=== PATIENT | female | born 1960 | race Caucasian/White ===

== ENCOUNTER 2017-01-07 12:24 | Inpatient (IN) | payer OTHER ==
[~2017-01-07] VITALS: Ht 170.2 cm; Wt 102.0 kg
[~2017-01-07 12:24] MED LIST: CYCL-259 PO; LEVO175T5 PO; NEBI5TAB2 PO
[2017-01-07] MEDS ORDERED: VANCOMYCIN PER PHARMACY MC STA (13:16)
[2017-01-07] MEDS ORDERED: VANCOMYCIN 1,500 MG in SODIUM CHLORIDE 0.9% 250 ML IV ONE (13:30)
[2017-01-07] MEDS ORDERED: LACTATED RINGERS 1,000 ML IV SCH (13:39)
[2017-01-07 13:43] VITALS: BP 137/85
[2017-01-07] MEDS ORDERED: MIDAZOLAM 1 MG/ML, 2ML ONE (14:17)
[2017-01-07] MEDS ORDERED: FENTANYL PF 100 MCG/2ML ONE ×2 (14:17→18:43)
[2017-01-07 15:12] LABS: HIV 1&2 ANTIBODY SCREEN Nonreactive (Nonreactive); HIV-1 p24 ANTIGEN Nonreactive (Nonreactive)
[2017-01-07] MEDS ORDERED: SENNA/DOCUSATE TABLET PO PRN (16:00)
[2017-01-07] MEDS ORDERED: HYDROmorphone 1 MG/ML, 1ML IV PRN (16:00)
[2017-01-07] MEDS ORDERED: DIPHENHYDRAMINE 25 MG CAPSULE PO PRN (16:00)
[2017-01-07] MEDS ORDERED: BISACODYL 10 MG SUPP PR PRN (16:00)
[2017-01-07] MEDS ORDERED: DIAZEPAM 5 MG TABLET PO PRN (16:00)
[2017-01-07] MEDS ORDERED: ALUMINUM/MAG/SIMETHICONE 30 ML UDC PO PRN (16:00)
[2017-01-07] MEDS ORDERED: MAGNESIUM HYDROXIDE 8%, 30ML UDC PO PRN (16:00)
[2017-01-07] MEDS ORDERED: ONDANSETRON 4 MG TABLET PO PRN (16:00)
[2017-01-07] MEDS ORDERED: ONDANSETRON 2MG/ML, 2ML IV PRN (16:00)
[2017-01-07] MEDS ORDERED: DEXAMETHASONE 4 MG/ML, 1ML ONE (16:08)
[2017-01-07] MEDS ORDERED: PROPOFOL 10 MG/ML, 20ML ONE (16:08)
[2017-01-07] MEDS ORDERED: CEFAZOLIN 1,000 MG ONE (16:08)
[2017-01-07] MEDS ORDERED: ONDANSETRON 2MG/ML, 2ML ONE (16:08)
[2017-01-07] MEDS ORDERED: MEPERIDINE/PF 25MG/0.5ML IVPush PRN (16:30)
[2017-01-07] MEDS ORDERED: LABETALOL 5MG/ML, 20ML IV PRN (16:30)
[2017-01-07] MEDS ORDERED: ONDANSETRON 2MG/ML, 2ML IVPush PRN (16:30)
[2017-01-07] MEDS ORDERED: PROMETHAZINE 25 MG/ML, 1ML IV PRN (16:30)
[2017-01-07] MEDS ORDERED: OXYcodone 5 MG/5 ML ORAL.SOL UDC PO PRN (16:30)
[2017-01-07] MEDS ORDERED: MIDAZOLAM 1 MG/ML, 2ML IV PRN (16:30)
[2017-01-07] MEDS ORDERED: hydrALAzine 20 MG/ML, 1ML IV PRN (16:30)
[2017-01-07] MEDS ORDERED: TRANEXAMIC ACID 100 MG/ML, 10ML ONE ×4 (16:36)
[2017-01-07] MEDS ORDERED: KETOROLAC 60 MG/2 ML ONE (17:06)
[2017-01-07] MEDS ORDERED: ROPIvacaine/PF 0.2%, 20 ML ONE (17:07)
[2017-01-07] MEDS ORDERED: ACETAMINOPHEN 650 MG/20.3 ML UDC ONE (18:43)
[2017-01-07] MEDS ORDERED: OXYcodone 5 MG/5 ML ORAL.SOL UDC ONE (18:44)
[2017-01-07] MEDS: ACETAMINOPHEN 650 MG/20.3 ML UDC PO PRN ×2 (18:49→23:33)
[2017-01-07] MEDS: FENTANYL PF 100 MCG/2ML IV PRN ×2 (18:59→19:10)
[2017-01-07] MEDS ORDERED: HYDROmorphone 1 MG/ML, 1ML ONE (19:14)
[2017-01-07] MEDS: HYDROmorphone 1 MG/ML, 1ML IV PRN ×4 (19:15→20:05)
[2017-01-07 20:45] VITALS: BP 150/82
[2017-01-07] MEDS ORDERED: CYCLOBENZAPRINE 10 MG TABLET PO PRN (21:30)
[2017-01-07] MEDS: DOCUSATE 100 MG CAPSULE PO SCH (21:59)
[2017-01-07] MEDS: D5%-0.45NACL+KCL 20MEQ 1,000 ML IV SCH ×2 (21:59→23:48)
[2017-01-07] MEDS: OXYcodone IR 5MG TABLET PO PRN (23:33)
[2017-01-08 00:06] VITALS: BP 146/76
[2017-01-08 02:28] VITALS: BP 133/70
[2017-01-08] MEDS ORDERED: VANCOMYCIN PMX 1GM/200ML 200 ML IVPB ONE (02:30)
[2017-01-08] MEDS: ACETAMINOPHEN 650 MG/20.3 ML UDC PO PRN (04:34)
[2017-01-08] MEDS: OXYcodone IR 5MG TABLET PO PRN ×2 (04:34→09:02)
[2017-01-08 06:00] VITALS: BP 163/81
[2017-01-08] MEDS ORDERED: ASPIRIN 81 MG TABLET EC PO SCH (06:00)
[2017-01-08] MEDS ORDERED: LEVOTHYROXINE 175 MCG TABLET PO SCH (06:00)
[2017-01-08] MEDS ORDERED: NEBIVOLOL HCL 5 MG TABLET PO SCH (06:00)
[2017-01-08] MEDS ORDERED: DEXAMETHASONE 4 MG/ML, 1ML IVPush SCH (06:00)
[2017-01-08 08:00] VITALS: BP 118/77
[2017-01-08] MEDS ORDERED: TAMSULOSIN 0.4 MG CAP.ER.24H PO SCH (09:00)
[2017-01-08] MEDS: D5%-0.45NACL+KCL 20MEQ 1,000 ML IV SCH (09:02)
[2017-01-08] MEDS: DOCUSATE 100 MG CAPSULE PO SCH (09:02)
[2017-01-08] MEDS ORDERED: ASPI-621 PO (10:02)
[2017-01-08] MEDS ORDERED: OXYC5CAP4 PO (10:03)
[2017-01-08] MEDS ORDERED: DIAZ5TAB PO (10:04)
[2017-01-08] MEDS ORDERED: TRAM50TA2 PO (10:06)
[2017-01-08] MEDS ORDERED: DOCU-30 PO (10:07)
[2017-01-08] MEDS ORDERED: ONDA4TAB10 PO (10:07)
[2017-01-08 11:13] VITALS: BP 135/79
[2017-01-08] MEDS ORDERED: CELE200C PO (12:09)
[2017-01-08] MEDS ORDERED: KETOROLAC 30 MG/1 ML IV SCH (16:00)
== END 2017-01-08 12:25 | disposition home or self-care (01) | DRG 470 ==
LOC: ORIP 12:46 → 4NOR 20:45 → DCLOUNGE 01-08 11:53
PROVIDERS: ADMIT Orthopaedic Surgery; ATTEND Orthopaedic Surgery
PROC: 3E0T3BZ Introduction of Anesthetic Agent into Peripheral Nerves and Plexi, Percutaneous Approach (ICD-10-PCS; 2017-01-07)
PROC: 0SRD0J9 Replacement of Left Knee Joint with Synthetic Substitute, Cemented, Open Approach (ICD-10-PCS; principal; 2017-01-07 14:45)
DX: M17.0 Bilateral primary osteoarthritis of knee (principal); K21.9 Gastro-esophageal reflux disease without esophagitis; E03.9 Hypothyroidism, unspecified; I10 Essential (primary) hypertension; E66.01 Morbid (severe) obesity due to excess calories; R33.9 Retention of urine, unspecified; Z88.2 Allergy status to sulfonamides; Z68.35 Body mass index [BMI] 35.0-35.9, adult
CPT/HCPCS: 36415; 83036; 85014; 85018; 85730; 86703; 87081; 87147; 87899; C1713; J0690; J1100; J1170; J1885; J2250; J2405; J2704; J2795; J3010; J3370; C1776; G0435; J3480; J7050; J7120; Q0163

== ENCOUNTER → 2017-04-11 | Outpatient (CLI) | payer OTHER ==
[~2017-04-11] MED LIST changes: +ASPI-496 PO; +ASPI-621 PO; +CELE200C PO; +CYCL5TAB PO; +DIAZ5TAB PO; +DOCU-131 PO; +ONDA4TAB10 PO; +OXYC5CAP2 PO; +OXYC5TAB3 PO; +TRAM50TA2 PO
[2017-04-11 12:29] LABS: HEMATOCRIT 42.5 % (34.6-47.8); WHITE BLOOD COUNT 8.2 x10^3/uL (3.4-10)
[2017-04-11 12:36] LABS: BLOOD UREA NITROGEN 14 mg/dL (7-18)
[2017-04-11 12:53] LABS: HIV 1&2 ANTIBODY SCREEN Nonreactive (Nonreactive); HIV-1 p24 ANTIGEN Nonreactive (Nonreactive)
== END | disposition home or self-care (01) ==
LOC: STAR 11:23
PROVIDERS: ATTEND Orthopaedic Surgery
DX: Z01.818 Encounter for other preprocedural examination (principal); M17.11 Unilateral primary osteoarthritis, right knee; K21.9 Gastro-esophageal reflux disease without esophagitis; R79.1 Abnormal coagulation profile; R79.89 Other specified abnormal findings of blood chemistry
CPT/HCPCS: 36415; 80048; 83036; 85025; 85610; 85730; 86703; 87081; 87147; 87899; 93005; G0435

== ENCOUNTER 2017-04-15 07:49 | Inpatient (IN) | payer OTHER ==
[~2017-04-15] VITALS: Ht 170.2 cm; Wt 109.7 kg
[~2017-04-15 07:49] MED LIST changes: -ASPI-496 PO; -CYCL5TAB PO; +EPINEPHRINE 1 MG/ML, 1ML ONE; +KETOROLAC 60 MG/2 ML ONE; -OXYC5TAB3 PO; +ROPIvacaine/PF 0.2%, 20 ML ONE; +SODIUM CHLORIDE 0.9% 50 ML ONE; +TRANEXAMIC ACID 100 MG/ML, 10ML ONE
[2017-04-15] MEDS ORDERED: LACTATED RINGERS 1,000 ML IV SCH (08:00)
[2017-04-15] MEDS ORDERED: ACETAMINOPHEN 500 MG TABLET PO STA (08:01)
[2017-04-15] MEDS ORDERED: OxyconTIN ER 10 MG TAB.ER PO STA (08:01)
[2017-04-15] MEDS ORDERED: GABAPENTIN 300 MG CAPSULE PO STA (08:01)
[2017-04-15] MEDS ORDERED: MIDAZOLAM 1 MG/ML, 2ML ONE (08:11)
[2017-04-15] MEDS ORDERED: BUPIVACAINE/PF 0.25% ONE (08:12)
[2017-04-15] MEDS ORDERED: ONDANSETRON 2MG/ML, 2ML ONE (08:12)
[2017-04-15] MEDS ORDERED: LIDOCAINE-MPF 2% ,5ML ONE (08:12)
[2017-04-15] MEDS ORDERED: PROPOFOL 50 ML ONE (08:12)
[2017-04-15] MEDS ORDERED: CEFAZOLIN 1,000 MG ONE (08:12)
[2017-04-15] MEDS ORDERED: PROPOFOL 10 MG/ML, 20ML ONE (08:12)
[2017-04-15] MEDS ORDERED: FENTANYL PF 100 MCG/2ML ONE ×2 (08:12→11:57)
[2017-04-15] MEDS ORDERED: DEXAMETHASONE 4 MG/ML, 1ML ONE (08:12)
[2017-04-15] MEDS ORDERED: VANCOMYCIN PER PHARMACY MC STA (08:15)
[2017-04-15] MEDS ORDERED: VANCOMYCIN 1,500 MG in SODIUM CHLORIDE 0.9% 250 ML IV ONE (09:00)
[2017-04-15] MEDS ORDERED: FENTANYL PF 100 MCG/2ML IV PRN (10:30)
[2017-04-15] MEDS ORDERED: MEPERIDINE/PF 25MG/0.5ML IVPush PRN (10:30)
[2017-04-15] MEDS ORDERED: OXYcodone 5 MG/5 ML ORAL.SOL UDC PO PRN (10:30)
[2017-04-15] MEDS ORDERED: PROMETHAZINE 25 MG/ML, 1ML IV PRN (10:30)
[2017-04-15] MEDS ORDERED: MIDAZOLAM 1 MG/ML, 2ML IV PRN (10:30)
[2017-04-15] MEDS ORDERED: DIAZEPAM 5 MG/ML, 2ML IVPush PRN (10:30)
[2017-04-15] MEDS ORDERED: hydrALAzine 20 MG/ML, 1ML IV PRN (10:30)
[2017-04-15] MEDS ORDERED: LABETALOL 5MG/ML, 20ML IV PRN (10:30)
[2017-04-15] MEDS ORDERED: METOCLOPRAMIDE 5 MG/ML, 2ML IV PRN (10:30)
[2017-04-15] MEDS ORDERED: ONDANSETRON 2MG/ML, 2ML IVPush PRN (10:30)
[2017-04-15] MEDS ORDERED: ALBUTEROL/IPRATROPIUM 2.5MG/0.5MG, 3 ML NPPB PRN (10:30)
[2017-04-15] MEDS ORDERED: OXYcodone 5 MG/5 ML ORAL.SOL UDC ONE (11:57)
[2017-04-15] MEDS ORDERED: HYDROmorphone 1 MG/ML, 1ML ONE (11:57)
[2017-04-15] MEDS ORDERED: TRANEXAMIC ACID 1,500 MG in SODIUM CHLORIDE 0.9% 100 ML IV ONE (13:00)
[2017-04-15] MEDS: HYDROmorphone 1 MG/ML, 1ML IV PRN ×2 (13:05→13:20)
[2017-04-15 13:30] VITALS: BP 129/84
[2017-04-15] MEDS ORDERED: ONDANSETRON 2MG/ML, 2ML IV PRN (14:30)
[2017-04-15] MEDS ORDERED: MAGNESIUM HYDROXIDE 8%, 30ML UDC PO PRN (14:30)
[2017-04-15] MEDS ORDERED: VANCOMYCIN PMX 1GM/200ML 200 ML IVPB ONE (14:30)
[2017-04-15] MEDS ORDERED: ONDANSETRON 4 MG TABLET PO PRN (14:30)
[2017-04-15] MEDS ORDERED: CYCLOBENZAPRINE 10 MG TABLET PO PRN (14:30)
[2017-04-15] MEDS ORDERED: SENNA/DOCUSATE TABLET PO PRN (14:30)
[2017-04-15] MEDS ORDERED: BISACODYL 10 MG SUPP PR PRN (14:30)
[2017-04-15] MEDS ORDERED: HYDROmorphone 1 MG/ML, 1ML IV PRN (14:30)
[2017-04-15] MEDS ORDERED: ACETAMINOPHEN 650 MG/20.3 ML UDC PO PRN (14:30)
[2017-04-15] MEDS ORDERED: ALUMINUM/MAG/SIMETHICONE 30 ML UDC PO PRN (14:30)
[2017-04-15] MEDS: D5%-0.45% NACL 1,000 ML IV SCH (15:54)
[2017-04-15] MEDS: CEFAZOLIN PMX 1GM/50ML 50 ML IVPB SCH (18:46)
[2017-04-15] MEDS: OXYcodone IR 5MG TABLET PO PRN ×2 (18:51→22:41)
[2017-04-15] MEDS: ASPIRIN 81 MG TABLET EC PO SCH (18:53)
[2017-04-15 20:22] VITALS: BP 108/68
[2017-04-15] MEDS: DOCUSATE 100 MG CAPSULE PO SCH (21:00)
[2017-04-16] MEDS: D5%-0.45% NACL 1,000 ML IV SCH (00:19)
[2017-04-16 00:40] VITALS: BP 106/70
[2017-04-16] MEDS: OXYcodone IR 5MG TABLET PO PRN ×2 (03:01→08:26)
[2017-04-16] MEDS: CEFAZOLIN PMX 1GM/50ML 50 ML IVPB SCH (03:01)
[2017-04-16 03:12] VITALS: BP 111/67
[2017-04-16 05:25] LABS: HEMATOCRIT 34.5 % (34.6-47.8); HEMOGLOBIN 11.8 g/dL (11.7-16.4)
[2017-04-16] MEDS ORDERED: DEXAMETHASONE 4 MG/ML, 1ML IVPush SCH (06:00)
[2017-04-16] MEDS: ASPIRIN 81 MG TABLET EC PO SCH (06:17)
[2017-04-16 07:57] VITALS: BP 119/75
[2017-04-16] MEDS: DOCUSATE 100 MG CAPSULE PO SCH (08:26)
[2017-04-16] MEDS ORDERED: TAMSULOSIN 0.4 MG CAP.ER.24H PO SCH (09:00)
[2017-04-16] MEDS ORDERED: OXYC5TAB3 PO (10:14)
[2017-04-16] MEDS ORDERED: ASPI-496 PO (10:19)
[2017-04-16] MEDS ORDERED: ONDA4TAB10 PO (10:20)
[2017-04-16] MEDS ORDERED: DOCU-131 PO (10:20)
[2017-04-16] MEDS ORDERED: CELE200C PO (10:20)
[2017-04-16] MEDS ORDERED: CYCL5TAB PO (10:21)
[2017-04-16] MEDS ORDERED: TRAM50TA2 PO (10:21)
[2017-04-16 11:20] VITALS: BP 111/73
[2017-04-16] MEDS ORDERED: KETOROLAC 30 MG/1 ML IV SCH (14:30)
== END 2017-04-16 12:00 | disposition home or self-care (01) | DRG 470 ==
LOC: ORIP 07:49 → 4NOR 13:31
PROVIDERS: ADMIT Orthopaedic Surgery; ATTEND Orthopaedic Surgery
PROC: 0SRC0J9 Replacement of Right Knee Joint with Synthetic Substitute, Cemented, Open Approach (ICD-10-PCS; principal; 2017-04-15 09:45)
DX: M17.11 Unilateral primary osteoarthritis, right knee (principal); K21.9 Gastro-esophageal reflux disease without esophagitis; R03.0 Elevated blood-pressure reading, without diagnosis of hypertension; Z88.2 Allergy status to sulfonamides
CPT/HCPCS: 36415; 85014; 85018; C1713; J0171; J0690; J1100; J1170; J1885; J2250; J2405; J2704; J2795; J3010; J3370; J3490; C1776; J7120